=== PATIENT | male | born 1980 | race Caucasian/White ===

== ENCOUNTER 2017-09-19 13:42 | Emergency (ER) | payer BC ==
[2017-09-19 13:48] VITALS: BP 142/88
--- NOTE | 2017-09-19 14:59 | EDM.PDOC ---
ED HPI GENERAL MEDICAL PROBLEM - General Chief Complaint: Laceration Stated Complaint: Left top of eyelid laceration Time Seen by Provider: 09/19/17 13:57 Source of Information: Reports: Patient History Limitations: Reports: No Limitations - History of Present Illness INITIAL COMMENTS - FREE TEXT/NARRATIVE: Patient comes to ER with laceration complaint. Drove self to ER. Was walking by a wall and was caught by a nail sticking out of the wall. Sustained laceration of left eyelid. No visual changes/globe involvement. No other injuries. Tetanus is UTD. Left Eye Pain Score (Numeric/FACES): 2 - Related Data Allergies Allergy/AdvReac Type Severity Reaction Status Date / Time BEE VENOM Allergy Swelling Uncoded 09/19/17 13:44 Home Meds: Home Meds Ibuprofen [Motrin] 600 mg PO Q6H PRN 02/12/16 [History] Past Medical History HEENT History: Reports: None, Allergic Rhinitis Cardiovascular History: Reports: Hypertension, Other (See Below) Other Cardiovascular History: Elevated blood pressures at time of shoulder pain however no previous medical therapy required, patient does not know his cholesterol status Gastrointestinal History: Reports: None Genitourinary History: Reports: None Musculoskeletal History: Reports: None, Arthritis, Neck Pain, Chronic, Osteoarthritis Neurological History: Reports: None Psychiatric History: Reports: None Endocrine/Metabolic History: Reports: None Hematologic History: Reports: None Immunologic History: Reports: None Oncologic (Cancer) History: Reports: None Dermatologic History: Reports: Cellulitis, Other (See Below) Other Dermatologic History: Severe refractory cellulitis of the left leg in 1996 - Infectious Disease History Infectious Disease History: Reports: Chicken Pox - Past Surgical History Head Surgeries/Procedures: Reports: None HEENT Surgical History: Reports: Oral Surgery, Other (See Below) Respiratory Surgical History: Reports: None GI Surgical History: Reports: Hernia, Inguinal, Other (See Below) Male Surgical History: Reports: Circumcision, Vasectomy, Other (See Below) Endocrine Surgical History: Reports: None Neurological Surgical History: Reports: None Musculoskeletal Surgical History: Reports: Arthroscopic Procedure, Nerve Relocation, Shoulder Surgery, Other (See Below) Oncologic Surgical History: Reports: None - Past Imaging History Past Imaging History: Reports: MRI (C-spine on 06/02/15 with subsequent MRI of the left shoulder in May 2015) Social & Family History - Family History Family Medical History: Noncontributory - Tobacco Use Smoking Status *Q: Never Smoker - Caffeine Use Caffeine Use: Reports: Coffee Caffeine Use Comment: 2 sodas per day with 4 cups of coffee per day - Alcohol Use Days Per Week of Alcohol Use: 1 Number of Drinks Per Day: 2 Total Drinks Per Week: 2 - Recreational Drug Use Recreational Drug Use: No - Living Situation & Occupation Living situation: Reports: , with Family Occupation: Employed ED ROS GENERAL - Review of Systems Review Of Systems: ROS reveals no pertinent complaints other than HPI. ED EXAM, SKIN/RASH Exam: See Below Exam Limited By: No Limitations General Appearance: Alert, WD/WN, No Apparent Distress Eye Exam: Left Eye: Periorbital Changes (very mild edema of upper lid), Other ( left lid laceration, 2cm, located in area of eyelid crease. ), Bilateral Eye: EOMI, PERRL Ears: Normal External Exam Nose: Normal Inspection Throat/Mouth: Normal Lips, Normal Voice, No Airway Compromise Neck: Supple Respiratory/Chest: No Respiratory Distress Extremities: Normal Capillary Refill Neurological: Alert, Oriented, Normal Cognition, Normal Gait Psychiatric: Normal Affect, Normal Mood Skin: Warm, Dry, Wound/Incision (left eyelid) Course - Vital Signs Last Recorded V/S: Last Vital Signs Temp 36.6 C 09/19/17 13:46 Pulse 76 09/19/17 13:46 Resp 16 09/19/17 13:46 BP 142/88 H 09/19/17 13:46 Pulse Ox 99 09/19/17 13:46 - Re-Assessments/Exams Free Text/Narrative Re-Assessment/Exam: Call placed to [facility] for referral to specialist to have eyelid repaired given laceration's unique location. [facility] 1 Call contacted 5 of their physicians, none would accept patient. Call then placed to [facility]. Discussed patient with , on-call Recruitment Specialist. He accepted the patient and planned to have patient come to the eye clinic at [facility] to have the lid laceration repaired. Patient's arrived to ER and then drove patient to see once patient discharged from our facility. Departure - Departure Time of Disposition: 14:57 Disposition: DC/Tfer to Acute Hospital 02 Condition: Good Clinical Impression: Laceration, eyelid, left Qualifiers: Encounter type: initial encounter Qualified Code(s): S01.112A - Laceration without foreign body of left eyelid and periocular area, initial encounter - Discharge Information Referrals: PCP,Unknown [Primary Care Provider] - Forms: ED Department Discharge Additional Instructions: Patient and will drive directly to [facility] in [place] to see from Ophthalmology. He will see patient and repair the lid laceration. Follow up as recommended by . Follow up otherwise as needed for problems.
== END 2017-09-19 14:50 ==
LOC: LL.ED 13:42
DX: S01.112A Laceration without foreign body of left eyelid and periocular area, initial encounter (principal); W45.0XXA Nail entering through skin, initial encounter; I10 Essential (primary) hypertension
CPT/HCPCS: 99283

== ENCOUNTER 2017-11-22 16:21 | Emergency (ER) | payer BC ==
[2017-11-22] MEDS ORDERED: Sodium Chloride 0.9% 10 ML Syringe FLUSH PRN (16:34)
[2017-11-22] MEDS ORDERED: diphenhydrAMINE 50 MG/ML SDV IVPUSH ONE (16:34)
--- NOTE | 2017-11-22 16:42 | EDM.PDOC ---
ED HPI GENERAL MEDICAL PROBLEM - General Chief Complaint: Bite:Animal, Insect Stated Complaint: bee sting Time Seen by Provider: 11/22/17 16:30 Source of Information: Reports: Patient History Limitations: Reports: No Limitations - History of Present Illness INITIAL COMMENTS - FREE TEXT/NARRATIVE: Patient 37-year-old who was brought in by himself secondary to a bee sting on the on the tip of the tongue patient took an EpiPen 0.3 prior to arriving he does not appear in any distress does have swelling of the tongue Onset: Today, Sudden Duration: Minutes:, Constant Location: Reports: Face (Tongue) Quality: Reports: Ache Severity: Mild Improves with: Reports: Medication Worsens with: Reports: None Context: Reports: Activity Associated Symptoms: Reports: No Other Symptoms - Related Data Allergies Allergy/AdvReac Type Severity Reaction Status Date / Time BEE VENOM Allergy Swelling Uncoded 09/19/17 13:44 Home Meds: Home Meds Ibuprofen [Motrin] 600 mg PO Q6H PRN 02/12/16 [History] EPINEPHrine [Epipen 2-Dominic] 0.3 mg IJ ASDIRECTED PRN #2 ml 11/22/17 [Rx] EPINEPHrine [Epipen] 0.3 mg IM ASDIRECTED PRN 11/22/17 [History] Fluticasone Propionate [Flonase Allergy Relief] 9.9 ml NS DAILY 11/22/17 [ History] diphenhydrAMINE [Benadryl] 50 mg PO Q6HR PRN #30 cap MDD 200 11/22/17 [Rx] Past Medical History HEENT History: Reports: None, Allergic Rhinitis Cardiovascular History: Reports: Hypertension, Other (See Below) Other Cardiovascular History: Elevated blood pressures at time of shoulder pain however no previous medical therapy required, patient does not know his cholesterol status Gastrointestinal History: Reports: None Genitourinary History: Reports: None Musculoskeletal History: Reports: None, Arthritis, Neck Pain, Chronic, Osteoarthritis Neurological History: Reports: None Psychiatric History: Reports: None Endocrine/Metabolic History: Reports: None Hematologic History: Reports: None Immunologic History: Reports: None Oncologic (Cancer) History: Reports: None Dermatologic History: Reports: Cellulitis, Other (See Below) Other Dermatologic History: Severe refractory cellulitis of the left leg in 1996 - Infectious Disease History Infectious Disease History: Reports: Chicken Pox - Past Surgical History Head Surgeries/Procedures: Reports: None HEENT Surgical History: Reports: Oral Surgery, Other (See Below) Respiratory Surgical History: Reports: None GI Surgical History: Reports: Hernia, Inguinal, Other (See Below) Male Surgical History: Reports: Circumcision, Vasectomy, Other (See Below) Endocrine Surgical History: Reports: None Neurological Surgical History: Reports: None Musculoskeletal Surgical History: Reports: Arthroscopic Procedure, Nerve Relocation, Shoulder Surgery, Other (See Below) Oncologic Surgical History: Reports: None - Past Imaging History Past Imaging History: Reports: MRI (C-spine on 06/02/15 with subsequent MRI of the left shoulder in May 2015) Social & Family History - Family History Family Medical History: Noncontributory - Tobacco Use Smoking Status *Q: Never Smoker Second Hand Smoke Exposure: No - Caffeine Use Caffeine Use: Reports: Coffee, Soda Caffeine Use Comment: 2 sodas per day with 4 cups of coffee per day - Recreational Drug Use Recreational Drug Use: No - Living Situation & Occupation Living situation: Reports: , with Family Occupation: Employed ED ROS GENERAL - Review of Systems Review Of Systems: See Below Constitutional: Reports: No Symptoms HEENT: Reports: No Symptoms Respiratory: Reports: No Symptoms Cardiovascular: Reports: No Symptoms Endocrine: Reports: No Symptoms GI/Abdominal: Reports: No Symptoms : Reports: No Symptoms Musculoskeletal: Reports: No Symptoms Skin: Reports: No Symptoms Neurological: Reports: No Symptoms Psychiatric: Reports: No Symptoms Hematologic/Lymphatic: Reports: No Symptoms Immunologic: Reports: No Symptoms ED EXAM, ANIMAL BITE - Physical Exam Exam: See Below Exam Limited By: No Limitations General Appearance: Alert, WD/WN, No Apparent Distress Eye Exam: Bilateral Eye: EOMI, Normal Inspection, PERRL Ears: Normal External Exam, Normal Canal, Hearing Grossly Normal, Normal TMs Nose: Normal Inspection, Normal Mucosa, No Blood Throat/Mouth: No Airway Compromise, Inflammation (Tongue secondary to insect bite) Head: Atraumatic, Normocephalic Neck: Normal Inspection, Supple, Non-Tender, Full Range of Motion Respiratory/Chest: No Respiratory Distress, Lungs Clear, Normal Breath Sounds, No Accessory Muscle Use, Chest Non-Tender Cardiovascular: Normal Peripheral Pulses, Regular Rate, Rhythm, No Edema, No Gallop, No JVD, No Murmur, No Rub GI/Abdominal: Normal Bowel Sounds, Soft, Non-Tender, No Organomegaly, No Distention, No Abnormal Bruit, No Mass (Male) Exam: Deferred Rectal (Males) Exam: Deferred Back Exam: Normal Inspection, Full Range of Motion, NT Extremities: Normal Inspection, Normal Range of Motion, Non-Tender, Normal Capillary Refill, No Pedal Edema Neurological: Alert, Oriented, CN II-XII Intact, Normal Cognition, Normal Gait, Normal Reflexes, No Motor/Sensory Deficits Psychiatric: Normal Affect, Normal Mood Skin Exam: Warm/Dry, DRY, I, Normal Color, NR Lymphatic: No Adenopathy Course - Orders/Labs/Meds Orders: Active Orders 24 hr Category Date Time Status Sodium Chloride 0.9% [Saline Flush] Med 11/22/17 16:34 Ordered 10 ml FLUSH ASDIRECTED PRN Saline Lock Insert [OM.PC] Stat Oth 11/22/17 16:34 Ordered Medication Orders Sodium Chloride (Saline Flush) 10 ml FLUSH ASDIRECTED PRN PRN Reason: Keep Vein Open Meds: Medications Generic Name Dose Route Start Last Admin Trade Name Freq PRN Reason Stop Dose Admin Sodium Chloride 10 ml 11/22/17 16:34 Saline Flush FLUSH ASDIRECTED PRN Keep Vein Open Discontinued Medications Generic Name Dose Route Start Last Admin Trade Name Freq PRN Reason Stop Dose Admin Diphenhydramine HCl 50 mg 11/22/17 16:34 Benadryl IVPUSH 11/22/17 16:35 ONETIME ONE Departure - Departure Time of Disposition: 16:42 Disposition: Home, Self-Care 01 Condition: Good (Insect bite) Clinical Impression: Bee sting allergy - Discharge Information *PRESCRIPTION DRUG MONITORING PROGRAM REVIEWED*: No *COPY OF PRESCRIPTION DRUG MONITORING REPORT IN PATIENT OLEKSANDR: No Care Plan Goals: Patient will be sent home on Benadryl 50 mg every 6 hours for 3 days EpiPen 2 pack order. - My Orders Last 24 Hours: My Active Orders 11/22/17 16:34 Sodium Chloride 0.9% [Saline Flush] 10 ml FLUSH ASDIRECTED PRN Saline Lock Insert [OM.PC] Stat - Assessment/Plan Last 24 Hours: My Active Orders 11/22/17 16:34 Sodium Chloride 0.9% [Saline Flush] 10 ml FLUSH ASDIRECTED PRN Saline Lock Insert [OM.PC] Stat
[2017-11-22 16:48] VITALS: BP 139/92
== END 2017-11-22 17:02 | disposition home or self-care (01) ==
LOC: LL.ED 16:21
DX: T63.441A Toxic effect of venom of bees, accidental (unintentional), initial encounter (principal); I10 Essential (primary) hypertension; Z91.030 Bee allergy status
CPT/HCPCS: 96374; 99283; J1200; J7050